=== PATIENT | male | born 1965 | race Caucasian/White ===

== ENCOUNTER 2017-03-05 13:52 | Emergency (ER) | payer SELFPAY ==
[~2017-03-05] VITALS: Ht 188 cm; Wt 80.0 kg
[2017-03-05] MEDS ORDERED: LORazepam 1MG TABLET ONE (14:25)
[2017-03-05] MEDS ORDERED: LORazepam 1MG TABLET PO ONE (14:30)
[2017-03-05 14:43] LABS: HEMATOCRIT 41.6 % (39.2-51.8); HEMOGLOBIN 14.1 g/dL (13.7-18.0); WHITE BLOOD COUNT 4.3 x10^3/uL (3.4-10)
[2017-03-05 14:56] LABS: BLOOD UREA NITROGEN 9 mg/dL (7-18)
[2017-03-05 14:59] LABS: ASPARTATE AMINO TRANSFERASE 124 U/L (15-37)
[2017-03-05 15:02] LABS: ACETAMINOPHEN < 2 mcg/mL (10-30)
[2017-03-05 16:42] VITALS: BP 128/84
== END 2017-03-05 16:45 | disposition home or self-care (01) ==
LOC: ED 16:39
DX: F10.229 Alcohol dependence with intoxication, unspecified (principal); F41.1 Generalized anxiety disorder; I10 Essential (primary) hypertension
CPT/HCPCS: 36415; 80053; 80307; 80329; 85025; 99284; G0479; G0480

== ENCOUNTER 2018-10-19 08:01 | Inpatient (IN) | payer MEDICARE ==
[~2018-10-19] VITALS: Ht 185.4 cm; Wt 95.0 kg
[2018-10-20 12:47] VITALS: BP 137/91
== END 2018-10-20 14:23 | disposition left against medical advice (07) | DRG 641 ==
LOC: ED 09:21 → EDIP 10:12 → 4EST 10:59
PROVIDERS: ADMIT Internal Medicine; ATTEND Internal Medicine
DX: E87.6 Hypokalemia (principal); F10.239 Alcohol dependence with withdrawal, unspecified; E87.0 Hyperosmolality and hypernatremia; F10.229 Alcohol dependence with intoxication, unspecified; F17.210 Nicotine dependence, cigarettes, uncomplicated; F43.10 Post-traumatic stress disorder, unspecified; F20.9 Schizophrenia, unspecified; J44.9 Chronic obstructive pulmonary disease, unspecified; I10 Essential (primary) hypertension; G47.00 Insomnia, unspecified; F15.10 Other stimulant abuse, uncomplicated; Z88.8 Allergy status to other drugs, medicaments and biological substances; Z91.19 Patient's noncompliance with other medical treatment and regimen; Z91.14 Patient's other noncompliance with medication regimen; Z81.8 Family history of other mental and behavioral disorders; Z71.41 Alcohol abuse counseling and surveillance of alcoholic
CPT/HCPCS: 36415; 80048; 80053; 80307; 83690; 83735; 85025; 96361; 96374; 96375; 96376; 99285; G0378; J1644; J1885; J2405; J3480; J2060; J7030